=== PATIENT | male | born 1990 | race Caucasian/White ===

== ENCOUNTER 2018-09-02 14:47 | Emergency (ER) | payer OTHER ==
[2018-09-02] MEDS ORDERED: NS 0.9% 1000 ML** 1,000 ML IV.FLUID IV ONE (17:06)
[2018-09-02] MEDS ORDERED: cefTRIAXone(*) 1 GM in NS 0.9% 50 ML* 50 ML IVPB ONE (17:06)
[2018-09-02] MEDS ORDERED: Ketorolac INJ* 15 MG/ML 1 ML VIAL IV ONE (17:06)
--- NOTE | 2018-09-02 17:22 | ED ---
Back Pain - HPI Summary HPI Summary: Pt is a 28 y/o M presenting to the ED with a chief complaint of back pain on both sides of his back. He states he came down with a fever on 08/28/18, and then the next day developed into feeling very fatigued. On 08/30 and 08/31, he had some difficulty urinating, described as burning and some pain, accompanied by dizziness and his fever. The past couple of months, he reports he has been sick around 4-5 times. On 09/01, he went to [facility] and received abx to treat a UTI, (macrobid) took one dose on the evening of 09/01 and one dose in the morning of 09/02, but reports that he feels much worse today and that the bilateral flank/ low back pain is new today compared to yesterday. He also took 400mg ibuprofen this morning around 0800 with some relief. He reports headache, fever, chills, photophobia, diaphoresis, burning with urination, and dysuria. He denies hematuria, cough, phlegm, dizziness, ear ache , sore throat, or rash. He denies hx of kidney stones, but it is in his FHx. He also denies one-sided back pain or hx of UTI. - History of Current Complaint Chief Complaint: EDFlankPain Stated Complaint: POSSIBLE UTI PER [facility] Time Seen by Provider: 09/02/18 16:46 Hx Obtained From: Patient, Family/Bullet Lubricating Machine Operator - mother with pt Onset/Duration: Gradual Onset, Lasting Days, Still Present Onset/Duration: Started Days Ago, Still Present Timing: Constant, Lasting Days Back Pain Location: Is Diffuse - bilateral low back and bilateral flank pain Severity Initially: Mild Severity Currently: Moderate Pain Intensity: 3 Pain Scale Used: 0-10 Numeric Character: Aching Aggravating Symptom(s): Nothing Alleviating Symptom(s): Nothing Associated Signs And Symptoms: Positive: Fever, Other - dysuria - Allergies/Home Medications Allergies/Adverse Reactions: Allergies Allergy/AdvReac Type Severity Reaction Status Date / Time No Known Allergies Allergy Verified 09/02/18 14:56 Home Medications: Home Medications Nitrofurantoin Macrocrystals* [Macrodantin 100 mg*] 100 mg PO BID 09/02/18 [ History Confirmed 09/02/18] PMH/Surg Hx/FS Hx/Imm Hx Previously Healthy: Yes Endocrine/Hematology History: Denies: Hx Diabetes History: Denies: Hx Kidney Infection, Hx Kidney Stones - Surgical History Surgery Procedure, Year, and Place: none Infectious Disease History: No Infectious Disease History: Denies: Traveled Outside the [place] in Last 30 Days - Family History Known Family History: Positive: Other - kidney stones - Social History Occupation: Student Alcohol Use: None Hx Substance Use: No Substance Use Type: Reports: None Hx Tobacco Use: No Review of Systems Positive: Fever, Chills, Skin Diaphoresis Positive: Photophobia Negative: Sore Throat, Ear Ache Cardiovascular: Negative Negative: Cough Gastrointestinal: Negative Positive: burning, dysuria. Negative: hematuria Positive: Myalgia - back pain. Negative: Other - one-sided back pain; the back pain he has is bilateral Negative: Rash Neurological: Negative - dizziness Positive: Headache Psychological: Normal All Other Systems Reviewed And Are Negative: Yes Physical Exam - Summary Physical Exam Summary: Appearance: Ill-appearing, moderate pain distress, well-nourished Skin: Warm, color reflects adequate perfusion, diaphoretic Head: Normal Head/Face inspection, atraumatic Eyes: Conjunctiva clear ENT: Normal inspection Neck: Supple, no nodes, no JVD Respiratory: Lungs clear, normal breath sounds, no respiratory distress Cardio: RRR, No murmur, pulses normal, brisk capillary refill Abdomen: Soft, nontender : with nurse Marek as staffing and scheduling coordinator: uncircumcised male, right testicle tender, no masses, no redness, left testicle nontender Bowel sounds: Present Musculoskeletal: Strength Intact/ROM intact, no calf tenderness, no edema. Psychological: Normal Neuro: Alert, muscle tone normal, no focal deficit Triage Information Reviewed: Yes Vital Signs On Initial Exam: Initial Vitals Temp Pulse Resp BP Pulse Ox 100.9 F 103 16 140/82 99 09/02/18 14:52 09/02/18 14:52 09/02/18 14:52 09/02/18 14:52 09/02/18 14:52 Vital Signs Reviewed: Yes Diagnostics - Vital Signs Vital Signs Temp Pulse Resp BP Pulse Ox 09/02/18 16:40 100.1 F 96 20 121/69 100 09/02/18 14:52 100.9 F 103 16 140/82 99 - Laboratory Result Diagrams: 09/02/18 17:38 06/04/19 17:38 Lab Statement: Any lab studies that have been ordered have been reviewed, and results considered in the medical decision making process. - Ultrasound No standard instances Ultrasound Interpretation Completed By: Radiologist Summary of Ultrasound Findings: Renal US shows: 1. The prostate gland is enlarged measuring 57.5 cc. 2. No renal calculi or hydronephrosis. ED physician has reviewed this report. Re-Evaluation - Re-Evaluation First Eval Change: Unchanged Comment: Low back pain is controlled except reports new right testicle pain. Pt feels warm, but repeat temp is still 99 temporal. Abd soft, nontender. Mother with pt, given results of ultrasound, and advised of Dr. Bass's consult advice. Back Pain Course/Dx - Course Course Of Treatment: Pt is a 28 y/o M presenting to the ED with a chief complaint of back pain on both sides of his back. The past couple of months, he reports he has been sick around 4-5 times but this is first urinary illness. On 09/01, he went to [facility] and received abx for UTI (Macrobid), took one dose on the evening of 09/01 and one dose in the morning of 09/02, but reports that he feels much worse today with the new bilateral low back pain and bilateral flank pain. He reports headache, fever, chills, photophobia, diaphoresis, burning with urination, and dysuria. He denies hematuria, cough, phlegm, dizziness, ear ache, sore throat, or rash. He denies hx of kidney stones, but it is in his FHx. He also denies one-sided back pain or hx of UTI. Renal US shows: 1. The prostate gland is enlarged measuring 57.5 cc. 2. No renal calculi or hydronephrosis. I spoke with Dr. Bass about the pt's present condition. and he recommends ceftriaxone 2gms IV, gentamicin 160mg IV and 2 liters NS more and observation for at least 2 hrs more, to ensure that pt's fever is not rising. Pt should see Dr. Bass tomorrow, and call the office in the am, or if pt is admitted, Dr. Bass will see pt in the hospital. Hospitalists should admit pt, if pt requires admission, and urology will consult. Dr. Bass states to change pt's antibiotics to something that he is not already taking. - Diagnoses Differential Diagnosis/HQI/PQRI: Positive: Renal Colic, Other - pyelonephritis Provider Diagnoses: Enlarged prostate, Flank pain, Prostatitis, acute, Fever Discharge - Sign-Out/Discharge Documenting (check all that apply): Patient Departure Signing out patient TO: Benjamin Adair - awaiting response to antibiotics and fluids, and testicular US at 1900 09/02/18 Patient Received Moderate/Deep Sedation with Procedure: No - Discharge Plan Condition: Stable Disposition: HOME Patient Education Materials: Prostatitis (ED), Flank Pain (ED) Referrals: ALAN Marks [Primary Care Provider] - Additional Instructions: RETURN TO THE EMERGENCY ROOM WITH ANY NEW OR WORSENING SYMPTOMS. PLEASE CALL DR. BASS TOMORROW AT 8 AM TO SCHEDULE AN APPOINTMENT. - Billing Disposition and Condition Condition: STABLE Disposition: Home - Attestation Statements Document Initiated by Scribe: Yes Documenting Scribe: Grecia Brower Provider For Whom Scribe is Documenting (Include Credential): Dr. Helena Valderrama MD. Scribe Attestation: I, Grecia Brower, scribed for Dr. Helena Valderrama MD. on 09/02/18 at 2223. Scribe Documentation Reviewed: Yes Provider Attestation: The documentation as recorded by the scribe, Grecia Brower accurately reflects the service I personally performed and the decisions made by me, Dr. Helena Valderrama MD. Status of Scribe Document: Viewed Consult Consult: 1909 - I spoke with Dr. Bass about the pt's present condition.
[2018-09-02 17:56] LABS: Hematocrit 46 % (42-52); Hemoglobin 16.1 g/dL (14.0-18.0); Mean Corpuscular HGB Conc 35 g/dL (31-36); Mean Corpuscular Hemoglobin 31 pg (27-31); Mean Corpuscular Volume 90 fL (80-94); Mean Platelet Volume 7.8 fL (7.4-10.4); Platelet Count 163 10^3/uL (150-450); Red Blood Count 5.16 10^6 /uL (4.18-5.48); Red Cell Distribution Width 13 % (10.5-15); White Blood Count 16.8 10^3/uL (3.5-10.8)
[2018-09-02 18:07] LABS: Activated Partial Thrombo Time 32.6 seconds (26.0-38.0); INR 1.12 (0.82-1.09)
[2018-09-02 18:12] LABS: Albumin 4.7 g/dL (3.2-5.2); Albumin/Globulin Ratio 1.4 (1-3); BUN/Creatinine Ratio 13.2 (8-20); C Reactive Protein 43.93 mg/L (<8.01); Calcium 10.1 mg/dL (8.6-10.3); EGFR Non-African American 99.2 (>60); Globulin 3.3 g/dL (2-4); Potassium 3.4 mmol/L (3.5-5.0); Total Bilirubin 1.3 mg/dL (0.2-1.0)
[2018-09-02 18:22] LABS: ABS Lymphocytes 1.1 10^3/ul (1.0-4.8); ABS Monocytes 1.8 10^3/ul (0-0.8); ABS Neutrophils 13.9 10^3/ul (1.5-7.7); Eosinophil % 0.1 %; Lymphocyte % 6.4 %
[2018-09-02] MEDS ORDERED: cefTRIAXone(*) 2 GM in NS 0.9% 100 ML* 100 ML IVPB ONE (19:15)
[2018-09-02] MEDS ORDERED: Gentamicin ADULT (*) 160 MG in NS 0.9% 100 ML* 100 ML IVPB ONE (19:16)
[2018-09-02] MEDS ORDERED: cefTRIAXone VIAL(*) 250 MG VIAL IM ONE (19:18)
[2018-09-02] MEDS ORDERED: NS 0.9% 1000 ML** 2,000 ML IV ONE (19:19)
[2018-09-02 19:24] LABS: Urine Appearance Clear; Urine Bacteria Absent (Absent); Urine Bilirubin Negative (Negative); Urine Blood Negative (Negative); Urine Color Yellow; Urine Glucose Negative (Negative); Urine Ketones Trace (Negative); Urine Nitrite Negative (Negative); Urine Protein Negative (Negative); Urine Red Blood Cell Absent (Absent); Urine Specific Gravity 1.006 (1.010-1.030); Urine Urobilinogen Negative (Negative); Urine White Blood Cell 1+(6-10/hpf) (Absent)
[2018-09-02] MEDS ORDERED: ED cefTRIAXone 1 GM/50 ML 1 GM/50 ML PREMIX.SET IVPB ONE (19:28)
--- NOTE | 2018-09-02 19:28 | ED ---
Progress - Progress Note Progress Note: Pt is a sign out to Dr. Adair from Dr. Valderrama on the assembler 1st shift 7pm - 7am on - 09/03/18 pending observation with IV antibiotics. Pt will have an ABX change from Macrobid to Cipro or Bactrim with a Dx of prostatitis and instructions to follow up with Dr. Bass at 8 am 09/03/18. Re-Evaluation - Re-Evaluation First Eval Re-Evaluation Time: 22:55 Change: Unchanged Comment: Low back pain is controlled except reports new right testicle pain. Pt feels warm, but repeat temp is still 99 temporal. Abd soft, nontender. Mother with pt, given results of ultrasound, and advised of Dr. Bass's consult advice. Course/Dx - Course Course Of Treatment: The pt was a sign out from Dr. Valderrama to Dr. Adair due to a pending testicular US. The Pt received a testicular US which showed the right epididymis appears grossly unremarkable but there is slight hypervascularity in the right epididymal head, cannot exclude mild right epididymitis. The pt will be discharged home with the following Dx: Prostatitis, Flank pain, and enlarged prostate. The pt will be informed to follow up with his PCP within 3 days and to return to the ED with any new or worsening symptoms. - Diagnoses Provider Diagnoses: Enlarged prostate, Flank pain, Prostatitis, acute, Fever Discharge - Sign-Out/Discharge Documenting (check all that apply): Patient Departure - discharge, Receiving Sign-Out Receiving patient FROM: Helena Valderrama Patient Received Moderate/Deep Sedation with Procedure: No - Discharge Plan Condition: Stable Disposition: HOME Prescriptions: Sulfamethox/Trimethoprim DS* [Bactrim DS 800/160 TAB*] 1 tab PO BID #20 tab Patient Education Materials: Prostatitis (ED), Flank Pain (ED) Referrals: Tyler Bass MD [Medical Doctor] - 1 Day Additional Instructions: RETURN TO THE EMERGENCY ROOM WITH ANY NEW OR WORSENING SYMPTOMS. PLEASE CALL DR. BASS TOMORROW AT 8 AM TO SCHEDULE AN APPOINTMENT. - Billing Disposition and Condition Condition: STABLE Disposition: Home - Attestation Statements Document Initiated by Scribe: Yes Documenting Scribe: Ammon Julian Provider For Whom Scribe is Documenting (Include Credential): Benjamin Adair MD Scribe Attestation: I, Ammon Julian, scribed for Benjamin Adair MD on 09/03/18 at 0510. Scribe Documentation Reviewed: Yes Provider Attestation: The documentation as recorded by the Ammon collado accurately reflects the service I personally performed and the decisions made by me, Benjamin Adair MD Status of Scribe Document: Viewed
[2018-09-02] MEDS ORDERED: cefTRIAXone(*) 1 GM ADVAN/BAG ONE (19:51)
[2018-09-02 20:00] LABS: Erythrocyte Sed Rate 9 mm/Hr (0-14)
[2018-09-02] MEDS ORDERED: LORazepam INJ* 2 MG/ML 1 ML VIAL IV PUSH ONE (20:09)
[2018-09-02] MEDS ORDERED: Lorazepam PYXIS KEY PRN (20:09)
[2018-09-02] MEDS ORDERED: Lorazepam PYXIS KEY ONE (20:12)
[2018-09-02 23:51] VITALS: BP 117/64
== END 2018-09-03 00:01 | disposition home or self-care (01) ==
LOC: ED 14:47
DX: N41.0 Acute prostatitis (principal); N40.0 Benign prostatic hyperplasia without lower urinary tract symptoms; R50.9 Fever, unspecified; Z79.899 Other long term (current) drug therapy
CPT/HCPCS: 36415; 76770; 76870; 80053; 81003; 81015; 82550; 83605; 85025; 85610; 85652; 85730; 86140; 87040; 87086; 96361; 96365; 96366; 96367; 96375; 99284; J0696; J1580; J1885; J2060